=== PATIENT | female | born 1965 | race Caucasian/White ===

== ENCOUNTER 2024-02-20 12:54 | Emergency (ER) | payer BC, SELFPAY ==
[2024-02-20] VITALS (7 sets, daily range): BP systolic 111–174; BP diastolic 61–98
[2024-02-20 13:18] LABS: % Basophils 0.7 % (0-2); % Eosinophils 4.3 % (0-6); % Immature Granulocytes 0.3 % (0-0.5); % Lymphocytes 21.2 % (20.5-51.1); % Monocytes 8.5 % (1.7-9.3); Absolute Basophils 0.1 10^3/uL (0-0.2); Absolute Eosinophils 0.3 10^3/uL (0-0.7); Absolute Lymphocytes 1.4 10^3/uL (1.2-3.4); Absolute Monocytes 0.6 10^3/uL (0.1-0.6); Absolute Neutrophils 4.4 10^3/uL (1.4-6.5); Hematocrit 34.5 % (37.0-47.0); Hemoglobin 11.6 g/dL (12.0-16.0); Mean Corp Hgb Conc. 33.6 g/dL (33.0-37.0); Mean Corpuscular Hgb 29.6 pg (27.0-31.0); Mean Platelet Volume 9.4 fL (7.4-10.4); Nucleated Red Blood Cells % 0 %; Platelet Count 297 10^3/uL (130-400); Red Blood Cell Count 3.92 10^6/uL (4.20-5.40); Red Cell Dist. Width 14.8 % (11.5-14.5); White Blood Cell Count 6.7 10^3/uL (4.8-10.8)
[2024-02-20 13:27] LABS: APTT 26.2 Sec (23.4-35.0); INR 1.05; PT 13.5 Sec (11.4-14.6)
[2024-02-20 13:44] LABS: ALT (SGPT) 42 U/L (0-35); AST (SGOT) 43 U/L (14-36); Albumin 4.3 g/dl (3.5-5.0); Alkaline Phosphatase 135 U/L (38-126); Blood Urea Nitrogen 10 mg/dl (7-17); Calcium 9.8 mg/dl (8.4-10.2); Carbon Dioxide 28 mmol/L (22-30); Chloride 101 mmol/L (98-107); Glucose 126 mg/dl (70-99); Potassium 3.2 mmol/L (3.5-5.1); Sodium 136 mmol/L (135-145); Total Bilirubin 0.9 mg/dl (0.2-1.3); Total Protein 7.4 g/dl (6.3-8.2); eGFR > 60.00
--- NOTE | 2024-02-20 16:39 | ED.GENMED ---
History of Present Illness
General
Chief Complaint: Rectal Bleeding
Source: patient
Exam Limitations: none
Time Seen by Provider: 02/20/24 16:04
Nursing documentation reviewed up to this point in time: agreed with
Travel History
Have you had any contact with someone who has COVID-19?: No
Do you have any symptoms of coronavirus? Fever > 100 degrees, chills, cough, shortness of breath, sore throat, loss of taste or smell, muscle aches, or headache?: No
History of Present Illness
History of Present Illness:
Patient is a 58-year-old female who presents to the ER for evaluation of rectal bleeding. She reports she has had bloody diarrhea off and on for the past 10 days. She has had at least 3�4 episodes of bloody diarrhea per day. No recent antibiotic
use. She has nauseous and has cramping with this. She reports over the past 1 year however she has had at least 20 of this and has not had this evaluated by a provider. She did have a colonoscopy in 2020 and tells me they removed a polyp which
showed diverticulosis but nothing else. She does have a family history however colon cancer. She does drink vodka 6-8 ounces a day about 3 drinks per day.
She denies any recent cough fever chills no recent illness.
Past History
Past History
ED Past Medical History: Hypothyroidism
ED Past Surgical History: Cholecystectomy (Within the past month)
Social History
Tobacco: Non-smoker
Living: with family
Employment: Employed
Review of Systems
Review of Systems
Allergies reviewed?: Yes
All Other Systems: ROS reviewed and negative except as documented in HPI and ROS
Constitutional: Reports fatigue; Denies fever or chills
EENT: Reports no symptoms
Respiratory: Reports no symptoms
Cardiac: Reports no symptoms
ABD/GI: Reports abdominal pain (abdominal cramping ) and diarrhea (bloody diarrhea ); Denies vomiting
Musculoskeletal: Reports no symptoms
Skin: Reports no symptoms
Neurological: Reports no symptoms
Hematologic/Lymphatic: Reports no symptoms
Psychiatric: Reports no symptoms
Phy Exam
General Physical Exam
General Presentation: no apparent distress
General age: appears stated age
General Skin: warm and dry
General Habitus: normal
General Mental: alert
General Hydration: appears well hydrated
Gastrointestinal Exam
Gastrointestinal Exam: non tender, soft and other (no stool on rectal exam )
Neurological Exam
Neurological Exam: alert and oriented x3
Musculoskeletal Exam
Musculoskeletal Exam: full ROM
Skin Exam
Skin Exam: normal color and warm/dry
Psychiatric Exam
Psychiatric Exam: normal mood/affect
Course
Orders/Labs/Results
Orders:
Orders
02/20/24 12:58
ECG [Electrocardiogram (*1)] Urgent
Reason for Study: Tachycardia
EKG- Treatment ONCE
02/20/24 13:11
Type+Screen Urgent
Complete Blood Count/With Diff Urgent
Comprehensive Metabolic Panel Urgent
Magnesium Urgent
Comment: ADD ON
PTT Urgent
Prothrombin Time Urgent
02/20/24 16:50
CT Abd/Pel (IV only)-DH only Urgent
Comment:
Reason For Exam: abd pain bloody diarrhea
IV Insert/Care/Rem.- Treatment PRN
0.9% Sodium Chloride 1000 ml [Nss] 1,000 ml IV BOLUS
02/20/24 16:52
Lorazepam [Ativan] 0.5 mg IV NOW STA
02/20/24 20:10
Add On- LAB Urgent
Tests Added?: magnesium
02/20/24 20:14
DDimer [D-Dimer] Urgent
02/20/24 21:01
CT Chest Pe Study Urgent
Comment:
Reason For Exam: sob /tachycardia
02/20/24 23:08
Lorazepam [Ativan] 0.5 mg IV NOW STA
Abnormal Lab Results
02/20/24 02/20/24
13:11 20:14
RBC 3.92 L 10^6/uL
(4.20-5.40)
Hgb 11.6 L g/dL
(12.0-16.0)
Hct 34.5 L %
(37.0-47.0)
RDW 14.8 H %
(11.5-14.5)
D-Dimer 0.95 H ug/mlFEU
(0.00-0.50)
Potassium 3.2 L mmol/L
(3.5-5.1)
Creatinine 0.5 L mg/dL
(0.6-1.0)
Glucose 126 H mg/dl
(70-99)
AST 43 H U/L
(14-36)
ALT 42 H U/L
(0-35)
Alkaline Phosphatase 135 H U/L
(38-126)
02/20/24 13:11
02/20/24 13:11
Vital Signs
Initial and Last Documented VS:
Initial Vital Signs
Temp Pulse Resp BP Pulse Ox
98.4 F 124 18 174/98 98
02/20/24 12:57 02/20/24 12:57 02/20/24 12:57 02/20/24 12:57 02/20/24 12:57
Last Documented Vital Signs
Temp Pulse Resp BP Pulse Ox
98.4 F 97 18 140/76 98
02/20/24 12:57 02/21/24 00:18 02/21/24 00:18 02/21/24 00:18 02/21/24 00:18
MDM/Problems Addressed
MDM/Problems Addressed:
Patient is a 58-year-old female presented to the ER for evaluation of bloody diarrhea off and on for the past 10 days. She has had multiple episodes within the past year of this however has never had this evaluated. She complains about nausea
cramping with this. She as documented had a last colonoscopy 2020 which showed diverticulosis no diverticulitis. Patient presents awake alert no acute distress white count is 6.0 with stable hemoglobin 11.6 (no prior labs). Abdomen soft nontender
. CAT scan shows diverticula but no diverticulitis some interstitial markings of both lungs likely interstitial fibrosis. Splenomegaly no evidence of cirrhosis. no stool episodes here. no stool on rectal exam. no evidence of blood on exam.
Patient did not have any episodes of diarrhea or bloody stool here we will give outpatient prescription for stool culture
Patient reexamined however tachycardic and has been tachycardic here she reports at home sometimes she feels intermittently labored breathing D-dimer was checked and elevated will plan to CAT scan to rule out PE.
If CAT scan negative plan to discharge home with outpatient follow-up family doctor. I did review the importance of following up with GI for reevaluation of symptoms with off-and-on change of stool diarrhea episodes for the past 1 year she may need
colonoscopy. I did review with patient the importance of decreasing alcohol use as her LFTs are up and she drinks alcohol frequently. She is to drink alcohol most daily but trying to decrease that over the past 1 month and only drinking several
times a week.
CAT scan chest is negative for PE however there is patchy bilateral peripheral groundglass opacity seen in the upper lobes however no clinical signs or symptoms of URI cough. Will have patient follow-up with pulmonary for this.
*Critical Care Note
Total Time (30-74mins, 75-104mins- exclusive of procedures): Not Applicable
ED Attending Note
-
Portions of this chart may have been created with voice recognition software.� Occasional wrong word or��sound alike� substitutions may have occurred due to the inherent limitations of voice recognition software.
Discharge Plan
Departure
Patient Disposition: Home (Routine Discharge)
Date of Disposition: 02/21/24
Time of Disposition: 00:13
Patient with high blood pressure during this ER visit?: Yes
Condition: Fair
Covid-19: Not Applicable
Discharge Problem:
Diarrhea
Instructions: Bloody Stools, Adult ED, Acute Diarrhea
Prescriptions:
No Action
atorvastatin 20 mg Tablet
20 mg PO QPM
loperamide [Imodium] 2 mg Capsule
2 mg PO DAILYPRN PRN (Reason: diarrhea)
ibuprofen 200 mg Tablet
200 mg PO DAILYPRN PRN (Reason: mild pain)
omeprazole 20 mg Capsule,Delayed Release(Dr/Ec)
20 mg PO QPMPRN PRN (Reason: gerd)
levothyroxine 200 mcg Tablet
200 mcg PO SUMOTUWETHFR@0800
levothyroxine 200 mcg Tablet
300 mcg PO SA@0800
losartan-hydrochlorothiazide 50-12.5 mg Tablet
1 tab PO QPM
simethicone [Gas-X] 80 mg Tablet,Chewable
80 mg PO DAILY
duloxetine 60 mg Capsule,Delayed Release(Dr/Ec)
60 mg PO DAILY
Centrum Silver Women 8 mg iron-400 mcg-50 mcg Tablet
1 tab PO NOON
Referrals:
Sia Coronado MD [Active] -
Fawn Fernandes MD [Active] -
Norah Scott DO [Family Provider] -
Activity Restrictions/Additional Instructions:
As discussed bland diet for the next several days call GI office if you do not hear from them in the next 1 to 2 days to schedule an appointment soon as possible
Follow-up with your family doctor for reevaluation of your symptoms as well. As discussed your liver functions are mildly elevated please follow the family doctor for this. Decreased alchohol use. .
You are also given an outpatient form for stool specimen please bring to the lab.
In addition it is recommended a follow-up with noc analyst for further evaluation of findings on your CAT scan.
Return to the ER for any worsening of symptoms
Interventions
Interventions:
*Risk Screen - Suicide Last Done: 02/20/24 16:17
*General Assessment Last Done: 02/20/24 16:17
*Neglect/Abuse Screening Last Done: 02/20/24 16:17
ZZ-Mizyus-Reaqtocbxs Assessment Last Done: 02/20/24 16:17
ED- Cardiac Assessment Last Done: 02/20/24 16:17
ED- Pulmonary Assessment Last Done: 02/20/24 16:17
Discharge Date and Time
Print Language: SAMI
[2024-02-20] MEDS: ATIVAN 0.5 MG IV ×2 (16:55→23:11)
[2024-02-20] MEDS: NSS 1000 IV (17:01)
[2024-02-20 20:39] LABS: D-Dimer 0.95 ug/mlFEU (0.00-0.50)
[2024-02-20 21:01] LABS: Magnesium 1.7 mg/dl (1.6-2.3)
[2024-02-21 00:16] VITALS: BP 140/76
[2024-02-21 00:18] VITALS: BP 140/76
== END 2024-02-21 00:37 | disposition home or self-care (01) ==
LOC: EMR 12:54
PROVIDERS: Emergency Medicine; Nurse Practitioner; EMERGENCY PHYSICIAN Student in an Organized Health Care Education/Training Program; FAMILY PHYSICIAN Internal Medicine
DX: R19.7 Diarrhea, unspecified (principal); R03.0 Elevated blood-pressure reading, without diagnosis of hypertension
CPT/HCPCS: 99285; 96374; 96376; 96361; 71275; 74177; 80053; 83735; 85025; 85379; 85610; 85730; 86850; 86900; 86901; 93005; Q9967

== ENCOUNTER → 2024-04-27 06:38 | Day surgery (SDC) | payer BC, SELFPAY | LOC: GI 06:38 | PROVIDERS: ATTENDING PHYSICIAN Internal Medicine Gastroenterology | DX: D12.5 Benign neoplasm of sigmoid colon (principal); K63.5 Polyp of colon; K64.8 Other hemorrhoids; K64.4 Residual hemorrhoidal skin tags; R19.4 Change in bowel habit; K22.2 Esophageal obstruction; K44.9 Diaphragmatic hernia without obstruction or gangrene; K31.7 Polyp of stomach and duodenum; R12 Heartburn | CPT/HCPCS: 45385; 45380; 43239; 88305 ==

== ENCOUNTER → 2024-05-01 07:01 | Outpatient (REF) | payer BC, SELFPAY ==
[2024-05-01 08:29] LABS: % Basophils 0.9 % (0-2); % Eosinophils 3.9 % (0-6); % Immature Granulocytes 0.4 % (0-0.5); % Lymphocytes 16.6 % (20.5-51.1); % Monocytes 6.1 % (1.7-9.3); % Neutrophils 72.1 % (42.2-75.2); Absolute Basophils 0.1 10^3/uL (0-0.2); Absolute Eosinophils 0.3 10^3/uL (0-0.7); Absolute Lymphocytes 1.3 10^3/uL (1.2-3.4); Absolute Monocytes 0.5 10^3/uL (0.1-0.6); Absolute Neutrophils 5.5 10^3/uL (1.4-6.5); Hematocrit 35.7 % (37.0-47.0); Hemoglobin 11.7 g/dL (12.0-16.0); Mean Corp Hgb Conc. 32.8 g/dL (33.0-37.0); Mean Corpuscular Hgb 26.9 pg (27.0-31.0); Mean Corpuscular Volume 82.1 fL (81.0-99.0); Mean Platelet Volume 9.9 fL (7.4-10.4); Nucleated Red Blood Cells % 0 %; Platelet Count 328 10^3/uL (130-400); Red Blood Cell Count 4.35 10^6/uL (4.20-5.40); Red Cell Dist. Width 15.7 % (11.5-14.5); White Blood Cell Count 7.7 10^3/uL (4.8-10.8)
[2024-05-01 08:56] LABS: Microalbumin, Random Urine 1.5 mg/dl (0.6-1.7); Microalbumin/creatinine Ratio 6.4 mg/g
[2024-05-01 09:05] LABS: ALT (SGPT) 31 U/L (0-35); AST (SGOT) 32 U/L (14-36); Albumin 4.6 g/dl (3.5-5.0); Alkaline Phosphatase 159 U/L (38-126); Blood Urea Nitrogen 8 mg/dl (7-17); Calcium 9.9 mg/dl (8.4-10.2); Carbon Dioxide 26 mmol/L (22-30); Chloride 98 mmol/L (98-107); Glucose 135 mg/dl (70-99); HDL Cholesterol 46 mg/dl; LDL Cholesterol, Calculated 77 mg/dl; Potassium 3.6 mmol/L (3.5-5.1); Sodium 138 mmol/L (135-145); Total Bilirubin 0.6 mg/dl (0.2-1.3); Total Cholesterol 187 mg/dl (50-199); Total Protein 7.4 g/dl (6.3-8.2); Triglyceride 321 mg/dl (10-149); Very Low Density Lipoprotein 64 mg/dl (0-30); eGFR > 60.00
[2024-05-01 09:27] LABS: TSH Reflex To Free T4 < 0.02 uIU/ml (0.47-4.68)
[2024-05-01 09:56] LABS: Free T4 1.73 ng/dl (0.78-2.19)
[2024-05-01 10:47] LABS: Glycohemoglobin (HgbA1c) 6.2 % (4.0-5.6)
== END ==
LOC: REG 07:01
PROVIDERS: ATTENDING PHYSICIAN Nurse Practitioner Family
DX: E11.9 Type 2 diabetes mellitus without complications (principal); R79.89 Other specified abnormal findings of blood chemistry; I10 Essential (primary) hypertension; E78.5 Hyperlipidemia, unspecified; E03.8 Other specified hypothyroidism; E06.3 Autoimmune thyroiditis; E03.9 Hypothyroidism, unspecified
CPT/HCPCS: 36415; 80053; 80061; 82043; 82570; 83036; 84439; 84443; 85025

== ENCOUNTER → 2024-06-07 07:16 | Outpatient (REF) | payer BC, SELFPAY | LOC: WDC 07:16 | PROVIDERS: ATTENDING PHYSICIAN Nurse Practitioner Family | DX: Z12.31 Encounter for screening mammogram for malignant neoplasm of breast (principal) | CPT/HCPCS: 77063; 77067 ==

== ENCOUNTER → 2024-09-06 15:23 | Outpatient (REF) | payer OTHER, BC, SELFPAY | LOC: RAD 15:23 | PROVIDERS: ATTENDING PHYSICIAN Internal Medicine | DX: S66.412A Strain of intrinsic muscle, fascia and tendon of left thumb at wrist and hand level, initial encounter (principal) | CPT/HCPCS: 73140 ==

== ENCOUNTER → 2025-06-11 07:15 | Outpatient (REF) | payer BC, SELFPAY | LOC: WDC 07:15 | PROVIDERS: ATTENDING PHYSICIAN Nurse Practitioner Family; FAMILY PHYSICIAN Internal Medicine | DX: Z12.31 Encounter for screening mammogram for malignant neoplasm of breast (principal) | CPT/HCPCS: 77063; 77067 ==

== ENCOUNTER → 2025-06-14 07:03 | Outpatient (REF) | payer BC, SELFPAY ==
[2025-06-14 08:31] LABS: Hematocrit 38.2 % (37.0-47.0); Hemoglobin 12.9 g/dL (12.0-16.0); Mean Corp Hgb Conc. 33.8 g/dL (33.0-37.0); Mean Corpuscular Volume 88.6 fL (81.0-99.0); Nucleated Red Blood Cells % 0 %; Platelet Count 232 10^3/uL (130-400); Red Cell Dist. Width 14.7 % (11.5-14.5)
[2025-06-14 09:06] LABS: ALT (SGPT) 28 U/L (0-35); AST (SGOT) 29 U/L (14-36); Albumin 4.8 g/dl (3.5-5.0); Alkaline Phosphatase 132 U/L (38-126); Blood Urea Nitrogen 7 mg/dl (7-17); Calcium 9.8 mg/dl (8.4-10.2); Carbon Dioxide 26 mmol/L (22-30); Chloride 103 mmol/L (98-107); Glucose 129 mg/dl (70-99); HDL Cholesterol 51 mg/dl; LDL Cholesterol, Calculated 93 mg/dl; Potassium 3.8 mmol/L (3.5-5.1); Sodium 139 mmol/L (135-145); Total Protein 7.6 g/dl (6.3-8.2); Very Low Density Lipoprotein 71 mg/dl (0-30); eGFR > 60.00
== END ==
LOC: REG 07:03
PROVIDERS: ATTENDING PHYSICIAN Nurse Practitioner Family; FAMILY PHYSICIAN Internal Medicine
DX: R73.9 Hyperglycemia, unspecified (principal); E78.2 Mixed hyperlipidemia; E03.9 Hypothyroidism, unspecified
CPT/HCPCS: 36415; 80053; 80061; 84439; 84443; 85025

== ENCOUNTER 2025-07-16 14:48 | Outpatient (RCR) | payer BC, SELFPAY | END 2025-07-16 23:59 | disposition home or self-care (01) | LOC: RPT 14:48 | PROVIDERS: ATTENDING PHYSICIAN Orthopaedic Surgery Hand Surgery; FAMILY PHYSICIAN Internal Medicine | DX: M75.41 Impingement syndrome of right shoulder (principal); Z73.6 Limitation of activities due to disability; M62.81 Muscle weakness (generalized); M25.521 Pain in right elbow | CPT/HCPCS: 97110; 97162 ==

== ENCOUNTER 2025-08-14 14:22 | Outpatient (RCR) | payer BC, SELFPAY | END 2025-08-14 23:59 | disposition home or self-care (01) | LOC: RPT 14:22 | PROVIDERS: ATTENDING PHYSICIAN Orthopaedic Surgery Hand Surgery; FAMILY PHYSICIAN Internal Medicine | DX: M75.41 Impingement syndrome of right shoulder (principal); Z73.6 Limitation of activities due to disability; M62.81 Muscle weakness (generalized); M25.521 Pain in right elbow | CPT/HCPCS: 97010; 97110; 97112 ==

== ENCOUNTER 2025-08-30 12:08 | Outpatient (RCR) | payer BC, SELFPAY | END 2025-08-30 23:59 | disposition home or self-care (01) | LOC: RPT 12:08 | PROVIDERS: ATTENDING PHYSICIAN Orthopaedic Surgery Hand Surgery; FAMILY PHYSICIAN Internal Medicine | DX: M75.41 Impingement syndrome of right shoulder (principal); Z73.6 Limitation of activities due to disability; M62.81 Muscle weakness (generalized); M25.521 Pain in right elbow | CPT/HCPCS: 97010; 97110; 97112 ==